=== PATIENT | male | born 1975 | race Caucasian/White ===

== ENCOUNTER 2024-01-05 12:39 | Emergency (ER) | payer BC ==
[2024-01-05 12:57] VITALS: BP 161/103; PULSE 110
== END 2024-01-05 14:50 | disposition home or self-care (01) ==
LOC: KA.ED 12:39
DX: R04.0 Epistaxis (principal); Z79.899 Other long term (current) drug therapy; Z88.0 Allergy status to penicillin
CPT/HCPCS: 99283; Q3014